=== PATIENT | female | born 1935 | race Two or more races ===

== ENCOUNTER 2019-05-15 10:52 | Emergency (ER) | payer SELFPAY ==
[~2019-05-15] VITALS: Ht 152.4 cm; Wt 51.7 kg
[2019-05-15 10:55] VITALS: BP 154/76
--- NOTE | 2019-05-15 11:03 | NUR ---
AT BEDSIDE FOR EVAL.
[2019-05-15] MEDS ORDERED: TDAP [DIPH/PERTUSSIS/TET] 0.5 ML VIAL IM ONE ×2 (11:13→11:30)
[2019-05-15] MEDS ORDERED: ACETAMINOPHEN ES 500 MG TABLET ONE (11:13)
[2019-05-15] MEDS ORDERED: ACETAMINOPHEN ES 500 MG TABLET PO ONE (11:30)
--- NOTE | 2019-05-15 11:39 | NUR ---
Patient discharged to home in stable condition. Written and verbal after care instructions given. Patient verbalizes understanding of instruction.
== END 2019-05-15 11:41 | disposition home or self-care (01) ==
LOC: ER 10:56
DX: S31.41XA Laceration without foreign body of vagina and vulva, initial encounter (principal); I10 Essential (primary) hypertension; E78.00 Pure hypercholesterolemia, unspecified; Z88.2 Allergy status to sulfonamides; W01.0XXA Fall on same level from slipping, tripping and stumbling without subsequent striking against object, initial encounter; Y93.89 Activity, other specified; Y92.89 Other specified places as the place of occurrence of the external cause; Y99.8 Other external cause status
CPT/HCPCS: 90715